=== PATIENT | male | born 1985 | race Two or more races ===

== ENCOUNTER 2024-08-04 14:48 | Outpatient (AMB) | payer OTHER, SELFPAY ==
--- NOTE | 2024-08-04 14:57 | A.OFFVIS_ITS ---
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 Mark Orr. He presents to the office today as a new patient for his ongoing testicular/scrotal pain he has been experiencing. He reports initially scrotal discomfort presented approximately 2 and half years ago. He reports shortly after having intercourse he started experiencing tingling sensation to his scrotum as well as the tip of his penis. He reports the symptoms very. He currently does not feel he has had any bothersome issues however he reports he is not sexually active at this time. He reports previously when he was he was intermittent with 1 partner and utilized protection appropriately. He reports at times he feels a pulling sensation to the tip of his penis as well as along the backside of his scrotum. He reports symptoms at times are variable. He otherwise denies any bothersome urinary issues. He denies urinary urgency, urinary frequency, incontinence, nocturia, hematuria, dysuria, foul smelling urine, changes to urinary stream, flank pain, fever, and or chills. He is happy with his current voiding parameters. In assessment of the patient today the penis is circumcised no pain or abnormalities noted throughout palpation and inspection of the penis and scrotum/testicles. We discussed at length potential causes of these symptoms he has been experiencing. Discussed obtaining scrotal ultrasound for further assessment evaluation. He denies any previous trauma. He otherwise offers no other issues or concerns at this time. [facility] Surgical History History of wisdom tooth extraction History of lumpectomy of left breast Review of Systems Const All systems reviewed & are unremarkable except as noted in HPI and below Physical Exam Const General: cooperative, healthy appearing, comfortable, no acute distress, well developed, alert and awake Orientation/consciousness: patient oriented x3 Limitations: no limitations HEENT Head: Yes normal to inspection, Yes normocephalic and Yes atraumatic Ears: hearing grossly normal bilaterally Eyes General: appearance normal, both eyes and all related structures Neck Neck: Yes normal visual inspection and Yes trachea midline Chest Chest palpation & inspection: normal inspection of the chest Resp Effort & Inspection: normal respiratory effort and able to speak in complete sen tences Cardio Rate: regular rate GI Inspection: Yes normal to inspection General: Yes no CVA tenderness Back/Spine/Pelvis Back: no CVA tenderness Skin General skin exam: no rashes or lesions noted Neuro General: patient oriented x3 Extrem General: Yes normal to inspection Psych Appearance: grossly normal and well kempt Mental Status: mental status grossly normal Speech and movement: Normal speech and movement present and Clear speech present Affect: normal affect Attitude: cooperative Thought process: Normal thought process present Thought content: Normal thought content present Insight: Fair insight present (Psych) Judgement: Fair judgement present (Psych) Results AMB Urinalysis, Automated UA Leukoctes 0 Margarette/uL Last Edit by Angry Citizen on 08/04/24 15:12 UA Nitrite Negative Last Edit by Angry Citizen on 08/04/24 15:12 UA Urobilinogen 0.2 mg/dL Last Edit by Angry Citizen on 08/04/24 15:12 UA Protein 0 mg/dL Last Edit by Angry Citizen on 08/04/24 15:12 UA pH 7.5 Last Edit by Angry Citizen on 08/04/24 15:12 UA Blood 0 Malachi/uL Last Edit by Angry Citizen on 08/04/24 15:12 UA Specific [place] 1.010 Last Edit by Angry Citizen on 08/04/24 15:12 UA Ketone Negative Last Edit by Angry Citizen on 08/04/24 15:12 UA Bilirubin 0 mg/dL Last Edit by Angry Citizen on 08/04/24 15:12 UA Glucose 0 mg/dL Last Edit by Carson Burgess on 08/04/24 15:12 Results Reviewed Results Reviewed: Laboratory Last Values Urine pH (Auto) 7.5 08/04/24 15:05 Specific [place] (Auto) 1.010 08/04/24 15:05 Urine Protein (Auto) 0 mg/dL 08/04/24 15:05 Glucose (UA)(Auto) 0 mg/dL 08/04/24 15:05 Urine Ketones (Auto) Negative 08/04/24 15:05 Urine Blood (Auto) 0 Malachi/uL 08/04/24 15:05 Urine Nitrite (Auto) Negative 08/04/24 15:05 Urine Bilirubin (Auto) 0 mg/dL 08/04/24 15:05 Urine Urobilinogen (Auto) 0.2 mg/dL 08/04/24 15:05 Leukocyte Esterase (Auto) 0 Margarette/uL 08/04/24 15:05 Assessment & Plan Assessment & Plan (1) Scrotal pain: Code(s): N50.82 - Scrotal pain Category: Medical Plan In office urinalysis results reviewed with the patient today; as noted above. We discussed at length potential causes for issues patient has been experiencing. Reassurance provided. Patient currently denies any bothersome urinary issues or concerns. He reports be happy with current voiding parameters. Will obtain scrotal ultrasound for further assessment evaluation. Follow-up in 3 months with imaging to be completed prior; or sooner with any issues, concerns, and or questions. Orders: Orders AMB Urinalysis Automated Today Z13.9 - Encounter for screening, unspecified US scrotum Today N43.3 - Hydrocele, unspecified Patient Instructions: The patient had an opportunity to ask questions regarding the treatment plan. All questions were answered. Physical exam, labs, and imaging were discussed and reviewed in detail. As well as risks, benefits, and discussion of treatment choices. No major barriers to understanding were identified. The patient expressed understanding and agreement with the above treatment plan. The patient was made aware they should contact our office by phone for worsening of their current condition, the appearance of new symptoms, or with any questions or concerns. Compliance is encouraged with any medications and follow up testing that is ordered. It is a privilege to be allowed the opportunity to participate in? your urological care.? Again, if you have any questions or concerns If you have any questions or concerns please do not hesitate to contact me. The office is [phone]. This note is constructed using voice recognition software. While every effort has been made to ensure accuracy animal shelter manager errors may have been included. Yours sincerely, MYLES Guevara-NAS Coding Level of Care Code New Pt Level 3 (99506) Diagnoses Scrotal pain N50.82
== END 2024-08-04 15:42 | disposition home or self-care (01) ==
PROVIDERS: PCP Family Medicine; Visit Provider Nurse Practitioner Family
DX: N50.82 Scrotal pain (principal); Z13.9 Encounter for screening, unspecified
CPT/HCPCS: 99203

== ENCOUNTER → 2024-08-04 14:48 | Outpatient (BNVA) | payer OTHER, SELFPAY | PROVIDERS: PCP Family Medicine; Visit Provider Nurse Practitioner Family | DX: N50.82 Scrotal pain (principal) | CPT/HCPCS: 81003 ==

== ENCOUNTER 2024-10-29 12:46 | Outpatient (REF) | payer OTHER, SELFPAY ==
--- NOTE | ~2024-10-29 | US_ITS ---
EXAMINATION: US SCROTUM HISTORY: N43.3 - Hydrocele, unspecified. COMPARISONS: There are no prior studies for comparison. FINDINGS: Real-time grayscale ultrasound imaging of the scrotum was performed. RIGHT TESTICLE: The right testis measures 3.8 x 2.3 x 2.9 cm and demonstrates normal homogeneous echotexture. No masses are seen. The right testis demonstrates normal color Doppler flow. RIGHT EPIDIDYMIS: Normal in size, shape, and vascularity. LEFT TESTICLE: The left testis measures 4.2 x 2.1 x 3.0 cm and demonstrates normal homogeneous echotexture. There is a tiny 3 mm cyst of the tunica. No solid testicular mass is identified. The left testis demonstrates normal color Doppler flow. LEFT EPIDIDYMIS: Normal in size, shape, and vascularity. VARICOCELE: None. HYDROCELE: There is a small right hydrocele. OTHER COMMENTS: None. US/US scrotum IMPRESSION: Small right hydrocele. Otherwise unremarkable scrotal ultrasound. Electronically signed by: Jayy Roman MD 11/04/2024 09:27 AM EST
== END 2024-10-29 12:47 | disposition home or self-care (01) ==
LOC: HO.US 12:46
PROVIDERS: PCP Family Medicine; Visit Provider Nurse Practitioner Family
DX: N43.3 Hydrocele, unspecified (principal)
CPT/HCPCS: 76870

== ENCOUNTER → 2024-10-29 12:47 | Outpatient (BNV) | payer OTHER, SELFPAY | PROVIDERS: PCP Family Medicine; Visit Provider Radiology Diagnostic Radiology | DX: N43.3 Hydrocele, unspecified (principal) | CPT/HCPCS: 76870 ==

== ENCOUNTER 2024-11-04 13:30 | Outpatient (AMB) | payer OTHER, SELFPAY ==
--- NOTE | 2024-11-04 13:34 | A.OFFVIS_ITS ---
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 Mark Orr. He presents to the office today for follow-up. Of note, patient was seen approximately 3 months ago as a new patient for his ongoing testicular/scrotal pain he has been experiencing at which time assessment noted no abnormalities a scrotal ultrasound was ordered and performed. These results reviewed with the patient today. Small right hydrocele otherwise unremarkable scrotal ultrasound. Patient reports over the last 3 months he has not had any bothersome scrotal discomfort. He otherwise denies any bothersome urinary issues. He denies ur inary urgency, urinary frequency, incontinence, nocturia, hematuria, dysuria, foul smelling urine, changes to urinary stream, flank pain, fever, and or chills. He is happy with his current voiding parameters. We discussed at length potential causes of scrotal discomfort patient had been experiencing. We discussed potential causes of hydroceles as well as further intervention and risks and benefits of these interventions. He denies any previous trauma. He otherwise offers no other issues or concerns at this time. [facility] Surgical History History of wisdom tooth extraction History of lumpectomy of left breast Review of Systems Const All systems reviewed & are unremarkable except as noted in HPI and below Physical Exam Const General: cooperative, healthy appearing, comfortable, no acute distress, well developed, alert and awake Orientation/consciousness: patient oriented x3 Limitations: no limitations HEENT Head: Yes normal to inspection, Yes normocephalic and Yes atraumatic Ears: hearing grossly normal bilaterally Eyes General: appearance normal, both eyes and all related structures Neck Neck: Yes normal visual inspection and Yes trachea midline Chest Chest palpation & inspection: normal inspection of the chest Resp Effort & Inspection: normal respiratory effort and able to speak in complete sentences Cardio Rate: regular rate GI Inspection: Yes normal to inspection General: Yes no CVA tenderness Back/Spine/Pelvis Back: no CVA tenderness Skin General skin exam: no rashes or lesions noted Neuro General: patient oriented x3 Extrem General: Yes normal to inspection Psych Appearance: grossly normal and well kempt Mental Status: mental status grossly normal Speech and movement: Normal speech and movement present and Clear speech present Affect: normal affect Attitude: cooperative Thought process: Normal thought process present Thought content: Normal thought content present Insight: Fair insight present (Psych) Judgement: Fair judgement present (Psych) Results AMB Urinalysis, Automated UA Leukoctes 0 Margarette/uL Last Edit by Flinto on 11/04/24 13:59 UA Nitrite Last Edit by Flinto on 11/04/24 13:59 UA Urobilinogen 0.2 mg/dL Last Edit by Flinto on 11/04/24 13:59 UA Protein 15 mg/dL Last Edit by Flinto on 11/04/24 13:59 UA pH 6.0 Last Edit by Flinto on 11/04/24 13:59 UA Blood 0 Malachi/uL Last Edit by Flinto on 11/04/24 13:59 UA Specific [place] 1.025 Last Edit by Flinto on 11/04/24 13:59 UA Ketone Last Edit by Flinto on 11/04/24 13:59 UA Bilirubin 0 mg/dL Last Edit by Flinto on 11/04/24 13:59 UA Glucose 0 mg/dL Last Edit by Flinto on 11/04/24 13:59 Results Reviewed Results Reviewed: Date of Service: 10/29/24 EXAMINATION: US SCROTUM FINDINGS: Real-time grayscale ultrasound imaging of the scrotum was performed. RIGHT TESTICLE: The right testis measures 3.8 x 2.3 x 2.9 cm and demonstrates normal homogeneous echotexture. No masses are seen. The right testis demonstrates normal color Doppler flow. RIGHT EPIDIDYMIS: Normal in size, shape, and vascularity. LEFT TESTICLE: The left testis measures 4.2 x 2.1 x 3.0 cm and demonstrates normal homogeneous echotexture. There is a tiny 3 mm cyst of the tunica. No solid testicular mass is identified. The left testis demonstrates normal color Doppler flow. LEFT EPIDIDYMIS: Normal in size, shape, and vascularity. VARICOCELE: None. HYDROCELE: There is a small right hydrocele. OTHER COMMENTS: None IMPRESSION: Small right hydrocele. Otherwise unremarkable scrotal ultrasound. Assessment & Plan Assessment & Plan (1) Scrotal pain: Code(s): N50.82 - Scrotal pain Category: Medical (2) Hydrocele, right: Code(s): N43.3 - Hydrocele, unspecified Category: Medical Plan In office urinalysis results reviewed with the patient today; as noted above. Recent scrotal ultrasound results with the patient today; as noted above. Reassurance provided. Patient currently denies any bothersome urinary issues or concerns. He reports be happy with current voiding parameters. Follow-up p.r.n. Patient Instructions: The patient had an opportunity to ask questions regarding the treatment plan. All questions were answered. Physical exam, labs, and imaging were discussed and reviewed in detail. As well as risks, benefits, and discussion of treatment choices. No major barriers to understanding were identified. The patient expressed understanding and agreement with the above treatment plan. The patient was made aware they should contact our office by phone for worsening of their current condition, the appearance of new symptoms, or with any questions or concerns. Compliance is encouraged with any medications and follow up testing that is ordered. It is a privilege to be allowed the opportunity to participate in? your urological care.? Again, if you have any questions or concerns If you have any questions or concerns please do not hesitate to contact me. The office is [phone]. This note is constructed using voice recognition software. While every effort has been made to ensure accuracy nurse manager errors may have been included. Yours sincerely, NAVIN Guevara Coding Level of Care Code Est Pt Level 3 (16652) Diagnoses Scrotal pain N50.82 Hydrocele, right N43.3
== END 2024-11-04 14:09 | disposition home or self-care (01) ==
PROVIDERS: PCP Family Medicine; Visit Provider Nurse Practitioner Family
DX: N50.82 Scrotal pain (principal); N43.3 Hydrocele, unspecified; Z13.9 Encounter for screening, unspecified
CPT/HCPCS: 99213

== ENCOUNTER → 2024-11-04 13:30 | Outpatient (BNVA) | payer OTHER, SELFPAY | PROVIDERS: PCP Family Medicine; Visit Provider Nurse Practitioner Family | DX: N50.82 Scrotal pain (principal); N43.3 Hydrocele, unspecified | CPT/HCPCS: 81003 ==